=== PATIENT | male | born 1995 | race Caucasian/White ===

== ENCOUNTER 2017-11-09 22:32 | Emergency (ER) | payer MEDICAID ==
[2017-11-09] MEDS ORDERED: IBUPROFEN 600 MG TAB PO ONE (22:40)
[2017-11-09] MEDS ORDERED: ACETAMINOPHEN 325 MG TAB PO ONE (22:40)
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
--- NOTE | 2017-11-09 23:23 | RADIOLOGY IMAGING REPORT ---
FACILITY: [facility] PATIENT NAME: Victor Hugo Salas : 1995 MR: [id number] V: [id number] EXAM DATE: ORDERING PHYSICIAN: KRISTIE SALEH TECHNOLOGIST: Location: [facility] Patient: Victor Hugo Salas : 1995 Visit/Account:[id number] Date of Sevice: 11/09/[address]: Indication: Injury. Technique: Contiguous axial sections were obtained from the base to the vertex without contrast enhan cement. One of the following dose optimization techniques was utilized in the performance of this exam: Autom ated exposure control; adjustment of the mA and/or kV according to the patient's size; or use of an i terative reconstruction technique. Specific details can be referenced in the facility's radiology CT exam operational policy. Comparison: None. Findings: There is no evidence of intra-axial or extra-axial hemorrhage. No focal areas of decreased or increased attenuation are identified. There is no evidence of mass, edema, or shift of the midline structures. The size, shape, and configuration of the ventricular system are normal. The skeletal st ructures are intact and unremarkable. There is no evidence of fracture or other acute deformity. The visualized paranasal sinuses and mastoid air cells are clear. Impression: Unremarkable unenhanced head CT. Report Dictated By: Efe Payne MD at 11/09/2017 11:16 PM Report E-Signed By: Efe Payne MD at 11/09/2017 11:18 PM WSN:[id number]
[2017-11-10 00:15] VITALS: BP 105/69
== END 2017-11-10 00:15 | disposition home or self-care (01) ==
LOC: ER 22:38
DX: R51 Headache (principal); S09.90XA Unspecified injury of head, initial encounter; Y04.2XXA Assault by strike against or bumped into by another person, initial encounter
CPT/HCPCS: 70450; 99284

== ENCOUNTER → 2017-11-09 | Outpatient (CLI) | payer MEDICAID ==
[~2017-11-09] MED LIST: CEPH-13 PO; MUPI15CR2 TP; SERT-1 PO
== END ==
LOC: AMB 22:22
PROVIDERS: ATTEND Nurse Practitioner
DX: R51 Headache (principal)
CPT/HCPCS: A0425; A0429

== ENCOUNTER 2017-12-20 20:36 | Emergency (ER) | payer MEDICARE, MEDICAID ==
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
[2017-12-20] MEDS ORDERED: LEVO500T83 PO (22:13)
[2017-12-20] MEDS ORDERED: LEVOFLOXACIN 500 MG TAB PO ONE (22:15)
[2017-12-20] MEDS ORDERED: cefTRIAXone 250 MG VIAL IM ONE (22:15)
[2017-12-20 22:25] VITALS: BP 102/63
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
== END 2017-12-20 22:35 | disposition home or self-care (01) ==
LOC: ER 20:46
DX: N45.1 Epididymitis (principal)
CPT/HCPCS: 76870; 81001; 86592; 86703; 87088; 87491; 87591; 96372; 99283; A9270; J0696

== ENCOUNTER 2017-12-22 17:26 | Emergency (ER) | payer MEDICARE, MEDICAID ==
[~2017-12-22 17:26] MED LIST changes: +LEVO500T83 PO
[2017-12-22 18:10] LABS: PLATELET COUNT, AUTOMATED 220 K/uL (150-450)
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
[2017-12-22 19:42] VITALS: BP 126/78
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
== END 2017-12-22 19:50 ==
LOC: ER 18:16
DX: F43.29 Adjustment disorder with other symptoms (principal)
CPT/HCPCS: 36415; 80305; 81001; 83735; 84443; 85025; 99284; G0480; 80320; 80329; 82040; 82247; 82310; 82374; 82435; 82565; 82947; 84075; 84132; 84155; 84295; 84450; 84460; 84520

== ENCOUNTER 2017-12-22 19:27 | Inpatient (IN) | payer MEDICARE, MEDICAID ==
[~2017-12-22] VITALS: Ht 180.3 cm; Wt 73.0 kg
[2017-12-22] MEDS ORDERED: NICOTINE CARTRIDGE 1 EA PO PRN (20:00)
[2017-12-22] MEDS ORDERED: NICOTINE INH SYSTEM 10 MG/INH INH PRN (20:00)
[2017-12-22] MEDS ORDERED: MAG HYD/AL HYD/SIMETH 30ML UDC PO PRN (20:00)
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
[2017-12-22 22:05] VITALS: BP 127/74
[2017-12-22] MEDS: ACETAMINOPHEN 325 MG TAB PO PRN (22:30)
[2017-12-23 06:04] VITALS: BP 117/57
[2017-12-23] MEDS: ACETAMINOPHEN 325 MG TAB PO PRN ×2 (06:09→20:19)
[2017-12-23] MEDS: MULTIVITAMINS TAB PO SCH (08:22)
[2017-12-23] MEDS: LEVOFLOXACIN 500 MG TAB PO SCH (10:03)
[2017-12-23] MEDS: NICOTINE POLACRILEX 2 MG GUM PO PRN ×2 (10:03→15:43)
[2017-12-23 14:52] VITALS: BP 119/76
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
[2017-12-24 04:08] VITALS: BP 93/71
[2017-12-24] MEDS: MULTIVITAMINS TAB PO SCH (08:16)
--- NOTE | 2017-12-24 09:13 | BHS Progress Note ---
[facility] - Subjective Progress Notes Subjective Patient remains calm and cooperative on the unit, patient verbalizing some inappropriate sexual comments. Patient showing no gross frustration with his stay on the unit, no para-suicidal behaviors, no aggression toward staff or other patients. Meeting today with legal guardian, DFS worker, and other outpatient case aide. At this time it is recommended that patient should not return home to living with his intellectually disabled mother. Will continue treatment, and continue to evaluate potential alternative living arrangements. Suicidal Ideation: None Homicidal Ideation: None [facility] - Objective Physical Exam Vital Signs Vital Signs Date Time Temp Pulse Resp B/P (MAP) Pulse Ox O2 Delivery O2 Flow Rate FiO2 12/24/17 04:08 97.9 74 93/71 (78) 92 Room Air Muscle Strength and Tone: WNL Gait and Station: Steady [facility] Medications Reviewed: Side Effects, Benefits of Medication, Risks Allergies Reviewed: Yes Mental Status Exam General Appearance: Casual, Good Eye Contact, Cooperative, Polite, Good Interaction, No Unkept, No Tearful, No Psychomotor Agitation, No Psychomotor Retardation Speech: Clear, Spontaneous, Normal Rate, Normal Rhythm, Normal Volume, Normal Tone, Inappropriate (inappropriate comments at times) Mood: Dysthmic/Depressed (minimal frustration) Affect: Full and Appropriate (full at times, patient easily redirectable. ), Calm, No Anxious, No Agitated Thought Process: No Loose Associations, No Flight of Ideas Thought Content: No Suicidal Ideation, No Homicidal Ideation, No Delusions, No Auditory Halllucinations, No Visual Hallucinations, No Thought Broadcasting, No Ideas of Reference, No Obsessions, No Compulsions Sensorium: Clear Cognition: Alert & Oriented-Person, Alert & Oriented-Place, Alert & Oriented- Time, Ayljb-Adxniyru-Qvqvxwyyp Memory: Immediate, Recent, Remote Intelligence: Below Average (borderline intelectual functioning verses mild mental retardation.) Insight Judgment: Poor (limited by intelectual capacity) [facility] Assessment and Plan Aaih-qk-Egym Encounter Date: Dec 24, 2017 Kjum-nm-Lpje Encounter Time: 08:40 [facility] Plan: Necessary Precautions, Individual/Group Therapy, Admin/Titrate Meds, Educate Patient Tobacco Medications: Not Appropriate Condition Multpiple Antipsychotics Used: No Problems: (1) Borderline intellectual functioning Status: Chronic (2) Parent-child relational problem Status: Chronic (3) Impulse control disorder Status: Chronic Condition 1. continue treatment. 2. look for appropriate placement. SULLY ARIAS MD Dec 24, 2017 09:13
[2017-12-24] MEDS: LEVOFLOXACIN 500 MG TAB PO SCH (09:27)
[2017-12-24] MEDS: NICOTINE INH SYSTEM 10 MG/INH INH PRN ×4 (09:27→20:22)
[2017-12-24] MEDS ORDERED: LORazepam 2 MG/ML VIAL IM PRN (13:50)
[2017-12-24] MEDS ORDERED: diphenhydrAMINE 50 MG/ML VIAL IM PRN (13:50)
[2017-12-24 16:21] VITALS: BP 121/62
[2017-12-24] MEDS: ACETAMINOPHEN 325 MG TAB PO PRN (20:22)
[2017-12-25 06:13] VITALS: BP 121/62
[2017-12-25] MEDS: MULTIVITAMINS TAB PO SCH (08:48)
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
[2017-12-25] MEDS: LEVOFLOXACIN 500 MG TAB PO SCH (10:07)
[2017-12-25] MEDS: NICOTINE INH SYSTEM 10 MG/INH INH PRN ×3 (10:09→17:30)
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
[2017-12-25 17:19] VITALS: BP 124/54
[2017-12-26 06:18] VITALS: BP 98/54
[2017-12-26] MEDS: MULTIVITAMINS TAB PO SCH (09:01)
--- NOTE | 2017-12-26 09:30 | BHS Progress Note ---
S - Subjective Progress Notes Subjective ""I'm scared." Depression and anxiety 10/31 Anger 610 Reports thoughts of self harm "Like punching farah, I don't know." Reports insufficient sleep Energy level "low" appetite sufficient Suicidal Ideation: None Homicidal Ideation: None [facility] - Objective Physical Exam Vital Signs Vital Signs Date Time Temp Pulse Resp B/P (MAP) Pulse Ox O2 Delivery O2 Flow Rate FiO2 12/26/17 06:18 98.3 55 98/54 (69) 95 Room Air 12/25/17 17:19 18 Muscle Strength and Tone: WNL Gait and Station: Steady [facility] Medications Reviewed: Side Effects, Benefits of Medication, Risks Allergies Reviewed: Yes Mental Status Exam General Appearance: Casual, Good Eye Contact, Cooperative, Polite, Good Interaction, No Unkept, No Tearful, No Psychomotor Agitation, No Psychomotor Retardation Speech: Clear, Spontaneous, Normal Rate, Normal Rhythm, Normal Volume, Normal Tone, Inappropriate (inappropriate comments at times) Mood: Dysthmic/Depressed (minimal frustration) Affect: Full and Appropriate (full at times, patient easily redirectable. ), Calm, No Anxious, No Agitated Thought Process: No Loose Associations, No Flight of Ideas Thought Content: No Suicidal Ideation, No Homicidal Ideation, No Delusions, No Auditory Halllucinations, No Visual Hallucinations, No Thought Broadcasting, No Ideas of Reference, No Obsessions, No Compulsions Sensorium: Clear Cognition: Alert & Oriented-Person, Alert & Oriented-Place, Alert & Oriented- Time, Zwyha-Okuvppox-Tersfgfow Memory: Immediate, Recent, Remote Intelligence: Below Average (Borderline intelectual functioning verses mild mental retardation.) Insight Judgment: Poor (Limited by low intellect) Microbiology Laboratory Tests Test 12/22/17 18:05 12/22/17 18:24 Range/Units White Blood Count 6.0 4.5-11.0 k/uL Red Blood Count 5.57 4.00-5.60 M/uL Hemoglobin 14.8 14.0-18.0 g/dL Hematocrit 43.5 42.0-52.0 % Mean Corpuscular Volume 78.0 80.0-96.0 fL Mean Corpuscular Hemoglobin 26.6 26.0-33.0 pg Mean Corpuscular Hemoglobin Concent 34.0 32.0-36.0 g/dL Red Cell Distribution Width 13.5 11.5-14.5 % Platelet Count 220 150-450 K/uL Mean Platelet Volume 8.9 7.2-11.1 fL Neutrophils (%) (Auto) 59.4 39.4-72.5 % Lymphocytes (%) (Auto) 30.6 17.6-49.6 % Monocytes (%) (Auto) 7.9 4.1-12.4 % Eosinophils (%) (Auto) 1.3 0.4-6.7 % Basophils (%) (Auto) 0.8 0.3-1.4 % Nucleated RBC Relative Count (auto) 0.0 /100WBC Neutrophils # (Auto) 3.6 2.0-7.4 K/uL Lymphocytes # (Auto) 1.8 1.3-3.6 K/uL Monocytes # (Auto) 0.5 0.3-1.0 K/uL Eosinophils # (Auto) 0.1 0.0-0.5 K/uL Basophils # (Auto) 0.0 0.0-0.1 K/uL Nucleated RBC Absolute Count (auto) 0.00 K/uL Sodium Level 138 137-145 mmol/L Potassium Level 3.6 3.5-5.0 mmol/L Chloride Level 101 98-107 mmol/L Carbon Dioxide Level 27 22-30 mmol/L Blood Urea Nitrogen 11 9-21 mg/dl Creatinine 0.70 0.66-1.25 mg/dl Glomerular Filtration Rate Calc > 60.0 Random Glucose 92 75-110 mg/dl Calcium Level 9.2 8.4-10.2 mg/dl Magnesium Level 1.7 1.7-2.2 mg/dl Total Bilirubin 0.4 0.2-1.3 mg/dl Aspartate Amino Transf (AST/SGOT) 27 0-35 U/L Alanine Aminotransferase (ALT/SGPT) 29 0-56 U/L Alkaline Phosphatase 79 0-126 U/L Total Protein 7.7 6.3-8.2 g/dl Albumin 4.2 3.5-5.0 g/dl Thyroid Stimulating Hormone (TSH) 2.23 0.46-4.68 uIU/ml Salicylates Level < 10 mg/L Salicylate Last Dose Date unk Acetaminophen Level < 10 ug/ml Serum Alcohol < 10 mg/dl Urine Color Yellow Urine Clarity Clear Urine pH 5.0 4.8-9.5 pH Urine Specific [place] 1.021 Urine Protein 100 NEGATIVE mg/dL Urine Glucose (UA) Negative NEGATIVE mg/dL Urine Ketones Negative NEGATIVE mg/dL Urine Blood Negative NEGATIVE Urine Nitrite Negative NEGATIVE Urine Bilirubin Negative NEGATIVE Urine Urobilinogen Negative 0.2-1.9 mg/dL Urine Leukocyte Esterase Negative NEGATIVE Urine RBC 1 0-2/HPF /HPF Urine WBC 1 0-5/HPF /HPF Urine Squamous Epithelial Cells None </=FEW /LPF Urine Bacteria Negative NONE-FEW /HPF Urine Hyaline Casts Few NONE-FEW /LPF Urine Mucus None NONE-FEW /HPF Urine Opiates Screen Positive Urine Barbiturates Screen Negative Ur Tricyclic Antidepressants Screen Negative Urine Phencyclidine Screen Negative Urine Amphetamines Screen Negative Urine Benzodiazepines Screen Negative Urine Cocaine Screen Negative Urine Cannabinoids Screen Negative [facility] Assessment and Plan Nezl-jy-Gkrw Encounter Date: Dec 26, 2017 Iiuy-ua-Wcnp Encounter Time: 09:30 [facility] Plan: Necessary Precautions, Individual/Group Therapy, Admin/Titrate Meds, Educate Patient Tobacco Medications: Not Appropriate Condition Multpiple Antipsychotics Used: No Problems: (1) Impulse control disorder Status: Chronic (2) Borderline intellectual functioning Optional Permanent Comment: verses mild intellectual disability Last Edited By: Jin Díaz on Dec 24, 2017 09:07 Status: Chronic (3) Adjustment reaction with aggression Status: Acute Condition Continue current treatment, maintain precautions Hearing delayed that was originally scheduled for tomorrow 12/27/17 Ongoing coordination of care with YESENIA Martinez NP Dec 26, 2017 09:30
[2017-12-26] MEDS: NICOTINE INH SYSTEM 10 MG/INH INH PRN ×2 (10:08→18:24)
[2017-12-26] MEDS: LEVOFLOXACIN 500 MG TAB PO SCH (10:08)
[2017-12-26 11:00] VITALS: BP 100/60
[2017-12-26] MEDS: ACETAMINOPHEN 325 MG TAB PO PRN (14:37)
[2017-12-26 18:15] VITALS: BP 124/60
[2017-12-27 05:59] VITALS: BP 122/66
[2017-12-27] MEDS: MULTIVITAMINS TAB PO SCH (08:21)
[2017-12-27] MEDS: ACETAMINOPHEN 325 MG TAB PO PRN (08:21)
--- NOTE | 2017-12-27 09:01 | BHS Progress Note ---
[facility] - Subjective Progress Notes Subjective Patient making some threats to staff members, and patient's when frustrated over the weekend, but avoiding any code yellows, or any chemical restraint. Patient able to redirect with minimal behavioral intervention. Appetite and sleep good. Cooperative this AM. Smiling with this provider, making good eye contact. Suicidal Ideation: None Homicidal Ideation: None [facility] - Objective Physical Exam Vital Signs Vital Signs Date Time Temp Pulse Resp B/P (MAP) Pulse Ox O2 Delivery O2 Flow Rate FiO2 12/27/17 05:59 98.1 81 16 122/66 (84) 92 Room Air Muscle Strength and Tone: WNL Gait and Station: Steady [facility] Medications Reviewed: Side Effects, Benefits of Medication, Risks Allergies Reviewed: Yes Mental Status Exam General Appearance: Casual, Good Eye Contact, Cooperative, Polite, Good Interaction, No Unkept, No Tearful, No Psychomotor Agitation, No Psychomotor Retardation Speech: Clear, Spontaneous, Normal Rate, Normal Rhythm, Normal Volume, Normal Tone, Inappropriate (inappropriate comments at times) Mood: Dysthmic/Depressed (minimal frustration) Affect: Full and Appropriate (full at times, patient easily redirectable. ), Calm, No Anxious, No Agitated Thought Process: No Loose Associations, No Flight of Ideas Thought Content: No Suicidal Ideation, No Homicidal Ideation, No Delusions, No Auditory Halllucinations, No Visual Hallucinations, No Thought Broadcasting, No Ideas of Reference, No Obsessions, No Compulsions Sensorium: Clear Cognition: Alert & Oriented-Person, Alert & Oriented-Place, Alert & Oriented- Time, Gzwgu-Rcgmfphj-Kezchxrhp Memory: Immediate, Recent, Remote Intelligence: Below Average (Borderline intelectual functioning verses mild mental retardation.) Insight Judgment: Poor (Limited by low intellect) [facility] Assessment and Plan Ulpp-qs-Lmfs Encounter Date: Dec 27, 2017 Bnhw-[id number] Encounter Time: 08:40 [facility] Plan: Necessary Precautions, Individual/Group Therapy, Admin/Titrate Meds, Educate Patient Tobacco Medications: Not Appropriate Condition Multpiple Antipsychotics Used: No Problems: (1) 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 continue treatment. 2. look for appropriate placement. SULLY ARIAS MD Dec 27, 2017 09:01
[2017-12-27] MEDS: NICOTINE INH SYSTEM 10 MG/INH INH PRN ×2 (09:11→12:30)
[2017-12-27] MEDS: LEVOFLOXACIN 500 MG TAB PO SCH (09:20)
[2017-12-27] MEDS: NICOTINE CARTRIDGE 1 EA PO PRN (12:30)
[2017-12-27 22:03] VITALS: BP 120/82
[2017-12-28] MEDS: MULTIVITAMINS TAB PO SCH (08:05)
[2017-12-28] MEDS: LEVOFLOXACIN 500 MG TAB PO SCH (10:19)
--- NOTE | 2017-12-28 11:43 | BHS Progress Note ---
[facility] - Subjective Progress Notes Subjective Patient remains able to be behaviorally re-directed on the unit. Patient bored at times and trying to create generalized mischief on the unit. Appetite and sleep intact. Mood variable, likely to be a result of limited cognitive abilities and impulse control disorder. Will continue treatment, and await for potential placement in facility in [place]. No other concerns today. Suicidal Ideation: None Homicidal Ideation: None [facility] - Objective Physical Exam Vital Signs Vital Signs Date Time Temp Pulse Resp B/P (MAP) Pulse Ox O2 Delivery O2 Flow Rate FiO2 12/27/17 22:03 98.2 88 120/82 (95) 92 Room Air 12/27/17 05:59 16 Muscle Strength and Tone: WNL Gait and Station: Steady [facility] Medications Reviewed: Side Effects, Benefits of Medication, Risks Allergies Reviewed: Yes Mental Status Exam General Appearance: Casual, Good Eye Contact, Cooperative, Polite, Good Interaction, No Unkept, No Tearful, No Psychomotor Agitation, No Psychomotor Retardation Speech: Clear, Spontaneous, Normal Rate, Normal Rhythm, Normal Volume, Normal Tone, Inappropriate (inappropriate comments at times) Mood: Dysthmic/Depressed (minimal frustration) Affect: Full and Appropriate (full at times, patient easily redirectable so far ), Calm, No Anxious, No Agitated Thought Process: No Loose Associations, No Flight of Ideas Thought Content: No Suicidal Ideation, No Homicidal Ideation, No Delusions, No Auditory Halllucinations, No Visual Hallucinations, No Thought Broadcasting, No Ideas of Reference, No Obsessions, No Compulsions Sensorium: Clear Cognition: Alert & Oriented-Person, Alert & Oriented-Place, Alert & Oriented- Time, Qytld-Fnqdvnzs-Asrthglxb Memory: Immediate, Recent, Remote Intelligence: Below Average (Borderline intelectual functioning verses mild mental retardation.) Insight Judgment: Poor (Limited by low intellect) [facility] Assessment and Plan Cxqw-yb-Ijow Encounter Date: Dec 28, 2017 Brru-qt-Tdjf Encounter Time: 10:00 [facility] Plan: Necessary Precautions, Individual/Group Therapy, Admin/Titrate Meds, Educate Patient Tobacco Medications: Not Appropriate Condition Multpiple Antipsychotics Used: No Problems: (1) 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 continue treatment. 2. await placement. SULLY ARIAS MD Dec 28, 2017 11:43
[2017-12-28] MEDS: ACETAMINOPHEN 325 MG TAB PO PRN (12:24)
[2017-12-28 16:10] VITALS: BP 111/50
[2017-12-28] MEDS: NICOTINE INH SYSTEM 10 MG/INH INH PRN (18:08)
[2017-12-28] MEDS: NICOTINE CARTRIDGE 1 EA PO PRN (18:08)
[2017-12-28 22:28] VITALS: BP 118/68
[2017-12-29] MEDS: MULTIVITAMINS TAB PO SCH (08:22)
--- NOTE | 2017-12-29 08:48 | BHS Progress Note ---
[facility] - Subjective Progress Notes Subjective Patient able to be behaviorally redirected last night again, concerning going to bed. mood reported good, sleep good, appetite intact. Patient demonstrates an understanding he is going to transfer hopefully to the [facility] [place]. No other concerns. Suicidal Ideation: None Homicidal Ideation: None [facility] - Objective Physical Exam Vital Signs Vital Signs Date Time Temp Pulse Resp B/P (MAP) Pulse Ox O2 Delivery O2 Flow Rate FiO2 12/28/17 22:28 98.4 75 118/68 (85) 95 Room Air 12/27/17 05:59 16 Muscle Strength and Tone: WNL Gait and Station: Steady [facility] Medications Reviewed: Side Effects, Benefits of Medication, Risks Allergies Reviewed: Yes Mental Status Exam General Appearance: Casual, Well Groomed, Good Eye Contact, Cooperative, Polite , Good Interaction, No Unkept, No Tearful, No Psychomotor Agitation, No Psychomotor Retardation Speech: Clear, Spontaneous, Normal Rate, Normal Rhythm, Normal Volume, Normal Tone, Inappropriate (inappropriate comments at times) Mood: Euthymic Affect: Full and Appropriate (full at times, patient easily redirectable so far ), Calm, No Anxious, No Agitated Thought Process: No Loose Associations, No Flight of Ideas Thought Content: No Suicidal Ideation, No Homicidal Ideation, No Delusions, No Auditory Halllucinations, No Visual Hallucinations, No Thought Broadcasting, No Ideas of Reference, No Obsessions, No Compulsions Sensorium: Clear Cognition: Alert & Oriented-Person, Alert & Oriented-Place, Alert & Oriented- Time, Kqhmr-Lqqjvcak-Hwxbkchxn Memory: Immediate, Recent, Remote Intelligence: Below Average (Borderline intelectual functioning verses mild mental retardation.) Insight Judgment: Poor (Limited by low intellect) [facility] Assessment and Plan Awpg-wh-Sirr Encounter Date: Dec 29, 2017 Dpsn-hg-Ctdm Encounter Time: 08:40 [facility] Plan: Necessary Precautions, Individual/Group Therapy, Admin/Titrate Meds, Educate Patient Tobacco Medications: Not Appropriate Condition Multpiple Antipsychotics Used: No Problems: (1) 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 continue treatment. 2. focus on behavioral management. 3. solidify discharge plans to structured living. SULLY ARIAS MD Dec 29, 2017 08:48
[2017-12-29 09:19] VITALS: BP 118/68
[2017-12-29] MEDS: LEVOFLOXACIN 500 MG TAB PO SCH (10:34)
[2017-12-29 19:20] VITALS: BP 110/80
[2017-12-30 05:57] VITALS: BP 92/59
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
[2017-12-30] MEDS: MULTIVITAMINS TAB PO SCH (08:56)
[2017-12-30] MEDS: LEVOFLOXACIN 500 MG TAB PO SCH (08:56)
[2017-12-30 09:29] VITALS: BP 117/63
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
[2017-12-30] MEDS: ACETAMINOPHEN 325 MG TAB PO PRN (18:04)
[2017-12-30] MEDS: NICOTINE INH SYSTEM 10 MG/INH INH PRN (21:38)
[2017-12-30] MEDS: NICOTINE CARTRIDGE 1 EA PO PRN (21:39)
[2017-12-31 07:38] VITALS: BP 127/88
[2017-12-31] MEDS: MULTIVITAMINS TAB PO SCH (07:43)
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
[2017-12-31] MEDS: NICOTINE INH SYSTEM 10 MG/INH INH PRN (19:35)
[2017-12-31] MEDS: NICOTINE CARTRIDGE 1 EA PO PRN (19:35)
[2018-01-01 06:33] VITALS: BP 103/59
[2018-01-01] MEDS: MULTIVITAMINS TAB PO SCH (08:06)
[2018-01-01] MEDS: NICOTINE INH SYSTEM 10 MG/INH INH PRN (08:13)
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
[2018-01-01 13:11] VITALS: BP 128/58
[2018-01-01 19:35] VITALS: BP 145/104
[2018-01-02 06:22] VITALS: BP 114/69
[2018-01-02] MEDS: MULTIVITAMINS TAB PO SCH (09:11)
--- NOTE | 2018-01-02 09:21 | BHS Progress Note ---
S - Subjective Progress Notes Subjective Upon meeting with patient in treatment team room, this provider informed by RN that eating utensils were hidden in patient's pocket. Patient aware that he is prohibited from having utensils due to self injurious behaviors resulting in finger foods. Patient met with team and returned to his room where he continued to refuse giving utensils back. Patient began picking at vent in room and running hand along window sill. Patient placed his head under blankets and began ripping fork apart continuing to refuse handing utensils to staff. Code yellow standby called. Patient remained uncooperative and began yelling and acting out which required physical restraint on floor after he additionally took staple out of paper work and refused to give to staff. Patient had staple and hands behind back which with additional attempts made to obtain objects he could self injure with. Decision made to transfer patient to segregation room for safety of patient and staff. PD called for standby as patient becoming increasingly combative during code yellow. Escorted to segregation room for patient safety with PD standby. Grandmother and uncle present for visit after moved to segregation area. Guardian Ford presents for visitation after grandmother left. Patient calmer, code cleared. Prior to incident rated: Depression 2/10 Anger 0, anxiety 0. Will continue to work toward continuous churn buttermaker structured living placement. Mood remains highly variable Will continue close monitoring and maintain precautions. Suicidal Ideation: None Homicidal Ideation: None S - Objective Physical Exam Vital Signs Vital Signs Date Time Temp Pulse Resp B/P (MAP) Pulse Ox O2 Delivery O2 Flow Rate FiO2 01/02/18 06:22 97.6 55 114/69 (84) 93 Room Air 01/01/18 13:11 16 Muscle Strength and Tone: WNL Gait and Station: Steady [facility] Medications Reviewed: Side Effects, Benefits of Medication, Risks Allergies Reviewed: Yes Mental Status Exam General Appearance: Casual, No Well Groomed, Good Eye Contact, No Cooperative, No Polite, No Good Interaction, No Unkept, No Tearful, No Psychomotor Agitation , No Psychomotor Retardation, Other (Uncooperative and resistent to requests made to keep patient and others safe) Speech: Clear, Spontaneous, Normal Rate, Normal Rhythm, Normal Volume, Normal Tone, Inappropriate (inappropriate comments at times) Mood: No Euthymic (varaible, quickly redirectable. ), Other (Irritable, uncooperative, refusing to give utensils back which he has hidden in pockets) Affect: No Full and Appropriate, No Calm, Anxious, Agitated Thought Process: Organized, No Loose Associations, No Flight of Ideas Thought Content: No Suicidal Ideation, No Homicidal Ideation, No Delusions, No Auditory Halllucinations, No Visual Hallucinations, No Thought Broadcasting, No Ideas of Reference, No Obsessions, No Compulsions Sensorium: Clear Cognition: Alert & Oriented-Person, Alert & Oriented-Place, Alert & Oriented- Time, Txumr-Htsabxlb-Gardiiiop Memory: Immediate, Recent, Remote Intelligence: Below Average (Borderline intelectual functioning verses mild mental retardation.) Insight Judgment: Poor (Limited by low intellect) Lab Vital Signs Date Time Temp Pulse Resp B/P (MAP) Pulse Ox O2 Delivery O2 Flow Rate FiO2 01/02/18 06:22 97.6 55 114/69 (84) 93 Room Air 01/01/18 13:11 16 [facility] Assessment and Plan Stci-vh-Lquy Encounter Date: Jan 02, 2018 Ddla-vr-Qmlk Encounter Time: 09:19 [facility] Plan: Necessary Precautions, Individual/Group Therapy, Admin/Titrate Meds, Educate Patient Tobacco Medications: Not Appropriate Condition Multpiple Antipsychotics Used: No Problems: (1) Impulse control disorder Status: Chronic (2) Borderline intellectual functioning Optional Permanent Comment: verses mild intellectual disability Last Edited By: Jin Díaz on Dec 24, 2017 09:07 Status: Chronic (3) Adjustment reaction with aggression Status: Acute Condition Maintain precautions, remain in segregation area at present time for safety of patient and others Treatment team Wednesday01/03/18 table games shift manager notified of incident YESENIA ERNST NP Jan 02, 2018 09:21
[2018-01-02] MEDS ORDERED: NIC10R INH (14:27)
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
== END 2018-01-02 15:27 | disposition home or self-care (01) | DRG 884 ==
LOC: BHS 19:27
PROVIDERS: ADMIT Psychiatry & Neurology Psychiatry; ATTEND Psychiatry & Neurology Psychiatry
DX: F70 Mild intellectual disabilities (principal); F63.89 Other impulse disorders; N45.1 Epididymitis; F17.210 Nicotine dependence, cigarettes, uncomplicated; F43.24 Adjustment disorder with disturbance of conduct; Z63.1 Problems in relationship with in-laws; Z62.820 Parent-biological child conflict; Z62.810 Personal history of physical and sexual abuse in childhood
CPT/HCPCS: 36415; 80305; 80320; 80329; 81001; 82040; 82247; 82310; 82374; 82435; 82565; 82947; 83735; 84075; 84132; 84155; 84295; 84443; 84450; 84460; 84520; 85025; 99284

== ENCOUNTER 2018-03-16 11:26 | Emergency (ER) | payer MEDICARE, MEDICAID ==
[~2018-03-16 11:26] MED LIST changes: +NIC10R INH
[2018-03-16 11:31] VITALS: BP 138/63
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
== END 2018-03-16 13:55 | disposition home or self-care (01) ==
LOC: ER 11:51
DX: T74.21XA Adult sexual abuse, confirmed, initial encounter (principal)
CPT/HCPCS: 81001; 99284